=== PATIENT | female | born 1985 | race Caucasian/White ===

== ENCOUNTER 2019-04-30 02:11 | Emergency (ER) | payer BC ==
[2019-04-30] MEDS ORDERED: Aspirin 81 MG Tab.Chew PO ONE (02:23)
[2019-04-30] MEDS ORDERED: Sodium Chloride 0.9% 10 ML Syringe FLUSH PRN (02:23)
[2019-04-30] MEDS ORDERED: Sodium Chloride 0.9% 2.5 ML Syringe FLUSH PRN (02:23)
--- NOTE | 2019-04-30 02:28 | EDM.PDOC ---
ED HPI GENERAL MEDICAL PROBLEM - General Chief Complaint: Chest Pain Stated Complaint: CHEST PAIN Time Seen by Provider: 04/30/19 02:15 - History of Present Illness INITIAL COMMENTS - FREE TEXT/NARRATIVE: HISTORY AND PHYSICAL: History of present illness: The patient is a 34-year-old female who presents with palpitations and chest pressure and feeling like she can't take a deep breath after awakening from sleep and getting up to relocate to her bedroom about a half an hour ago. The patient is that she had a normal day yesterday without any systemic issues and has not had chest pain or shortness of breath in the past. She does have a history of antiphospholipid antibody which she was diagnosed with 12 years ago and currently does not take any medications. She said that she recently reconnected with a recycling sorter and is supposed to be on Plaquenil which she has not restarted as well as a baby aspirin which she has not taken in the last few weeks/months. She has no significant family history for cardiac disease and earlier this evening she felt completely at her baseline. She has no abdominal pain no nausea vomiting no fevers or chills and no cough or other upper respiratory symptoms. She said she was sleeping comfortably and then woke up to locate to her bed and after waking up she started feeling like her heart was racing and beating fast and not caused her to have chest discomfort and pressure along with the shortness of breath. She rated it as a 6/10 at home and currently she rates it as 2-3/10. She did not take any medication at home prior to arrival. She denies any trauma to the area and has no back pain. She says that she does not believe that she is but she and her are trying to have a baby. She has been eating and drinking normally. She has no leg pain or swelling and no calf tenderness or leg asymmetry. Review of systems: As per history of present illness and below otherwise all systems reviewed and negative. Past medical history: As per history of present illness and as reviewed below otherwise noncontributory. Surgical history: As per history of present illness and as reviewed below otherwise noncontributory. Social history: No reported history of drug or alcohol abuse. Family history: As per history of present illness and as reviewed below otherwise noncontributory. Physical exam: General: Well-developed well-nourished female who is mildly overweight and nontoxic and speaking clearly and easily in the ED without breathlessness. She is a little anxious on my evaluation and vital signs are noted by me. HEENT: Atraumatic, normocephalic, pupils reactive, negative for conjunctival pallor or scleral icterus, mucous membranes moist, throat clear, neck supple, nontender, trachea midline. There is no thyromegaly or cervical adenopathy Lungs: Clear to auscultation, breath sounds equal bilaterally, chest nontender. No wheezing stridor or work of breathing Heart: S1S2, regular, negative for clicks, rubs, or JVD. Abdomen: Soft, nondistended, nontender. Negative for masses or hepatosplenomegaly. Negative for costovertebral tenderness. Pelvis: Stable nontender. Genitourinary: Deferred. Rectal: Deferred. Extremities: Atraumatic, negative for cords or calf pain. Neurovascular unremarkable. No pedal edema or leg asymmetry Neuro: Awake, alert, oriented. Cranial nerves II through XII unremarkable. Cerebellum unremarkable. Motor and sensory unremarkable throughout. Exam nonfocal. Diagnostics: EKG CBC CMP INR troponin TSH UA UCG chest x-ray, CTA of the chest Therapeutics: IV O2 monitor aspirin The patient currently is asleep in the room with stable vital signs and is not experiencing any gross discomfort. We will continue to monitor her testing results Patient has been sleeping most of the time while in the emergency department and I discussed all testing results with her and significant other at bedside. She has never been tachycardic and hypoxic or hypertensive here and she currently is very comfortable. I've advised her that due to her risk factors that observation admission would be the most conservative approach. She is currently in discussion with her significant other about the plan for this evening. Is currently not feeling short of breath or having any discomfort After conversation the patient is now stating that she does not want to be admitted and will follow-up with her provider and/or return here if the symptoms return. She is aware of concerns and of limitations here in the emergency department and accepts these and still wants to go home. Impression: Episode of palpitations and atypical chest pain Definitive disposition and diagnosis as appropriate pending reevaluation and review of above. mid chest pressure Pain Score (Numeric/FACES): 6 - Related Data Allergies Allergy/AdvReac Type Severity Reaction Status Date / Time No Known Allergies Allergy Verified 04/30/19 02:20 Home Meds: Home Meds Hydroxychloroquine [Plaquenil] 1 tab PO DAILY 04/30/19 [History] ED ROS GENERAL - Review of Systems Review Of Systems: ROS reveals no pertinent complaints other than HPI. ED EXAM, GENERAL - Physical Exam Exam: See Below (See dictation) Course - Vital Signs Last Recorded V/S: Last Vital Signs Temp 36.1 C 04/30/19 02:16 Pulse 63 04/30/19 04:24 Resp 17 04/30/19 04:24 BP 128/75 04/30/19 02:16 Pulse Ox 99 04/30/19 02:16 - Orders/Labs/Meds Orders: Active Orders 24 hr Category Date Time Status Cardiac Monitoring [RC] . DIRECTED Care 04/30/19 02:12 Active EKG Documentation Completion [RC] STAT Care 04/30/19 02:12 Active Oxygen Therapy, ED [RC] ASDIRECTED Care 04/30/19 02:12 Active Pulse Oximetry [RC] ASDIRECTED Care 04/30/19 02:12 Active Sodium Chloride 0.9% [Saline Flush] Med 04/30/19 02:23 Active 10 ml FLUSH ASDIRECTED PRN Sodium Chloride 0.9% [Saline Flush] Med 04/30/19 02:23 Active 2.5 ml FLUSH ASDIRECTED PRN Saline Lock Insert [OM.PC] Stat Oth 04/30/19 02:22 Ordered Medication Orders Sodium Chloride (Saline Flush) 10 ml FLUSH ASDIRECTED PRN PRN Reason: Keep Vein Open Last Admin: 04/30/19 02:39 Dose: 10 ml Sodium Chloride (Saline Flush) 2.5 ml FLUSH ASDIRECTED PRN PRN Reason: Keep Vein Open Last Admin: 04/30/19 02:40 Dose: 2.5 ml Labs: Laboratory Tests 04/30/19 04/30/19 04/30/19 Range/Units 02:25 02:25 02:35 WBC 8.79 (4.0-11.0) K/uL RBC 4.65 (4.30-5.90) M/uL Hgb 14.2 (12.0-16.0) g/dL Hct 40.6 (36.0-46.0) % MCV 87.3 (80.0-98.0) fL MCH 30.5 (27.0-32.0) pg MCHC 35.0 (31.0-37.0) g/dL RDW Std Deviation 40.9 (28.0-62.0) fl RDW Coeff of Marty 13 (11.0-15.0) % Plt Count 259 (150-400) K/uL MPV 10.00 (7.40-12.00) fL Neut % (Auto) 54.4 (48.0-80.0) % Lymph % (Auto) 34.7 (16.0-40.0) % Kimble % (Auto) 8.0 (0.0-15.0) % Eos % (Auto) 2.3 (0.0-7.0) % Baso % (Auto) 0.6 (0.0-1.5) % Neut # (Auto) 4.8 (1.4-5.7) K/uL Lymph # (Auto) 3.1 H (0.6-2.4) K/uL Kimble # (Auto) 0.7 (0.0-0.8) K/uL Eos # (Auto) 0.2 (0.0-0.7) K/uL Baso # (Auto) 0.1 (0.0-0.1) K/uL Nucleated RBC % 0.0 /100WBC Nucleated RBCs # 0 K/uL INR Sodium (136-145) mmol/L Potassium (3.5-5.1) mmol/L Chloride (98-107) mmol/L Carbon Dioxide (21.0-32.0) mmol/L BUN (7.0-18.0) mg/dL Creatinine (0.6-1.0) mg/dL Est Cr Clr Drug Dosing mL/min Estimated GFR (MDRD) ml/min Glucose (74-106) mg/dL Calcium (8.5-10.1) mg/dL Total Bilirubin (0.2-1.0) mg/dL AST (15-37) IU/L ALT (14-63) IU/L Alkaline Phosphatase (46-116) U/L Troponin I (0.000-0.056) ng/mL Total Protein (6.4-8.2) g/dL Albumin (3.4-5.0) g/dL Globulin (2.6-4.0) g/dL Albumin/Globulin Ratio (0.9-1.6) TSH 3rd Generation (0.36-3.74) uIU/mL Urine Color YELLOW Urine Appearance SLT CLOUDY Urine pH 6.0 (5.0-8.0) Ur Specific [place] 1.020 (1.001-1.035) Urine Protein NEGATIVE (NEGATIVE) mg/dL Urine Glucose (UA) NEGATIVE (NEGATIVE) mg/dL Urine Ketones NEGATIVE (NEGATIVE) mg/dL Urine Occult Blood NEGATIVE (NEGATIVE) Urine Nitrite NEGATIVE (NEGATIVE) Urine Bilirubin NEGATIVE (NEGATIVE) Urine Urobilinogen 0.2 (<2.0) EU/dL Ur Leukocyte Esterase NEGATIVE (NEGATIVE) Urine HCG, Qual NEGATIVE (NEGATIVE) 04/30/19 04/30/19 Range/Units 02:35 02:35 WBC (4.0-11.0) K/uL RBC (4.30-5.90) M/uL Hgb (12.0-16.0) g/dL Hct (36.0-46.0) % MCV (80.0-98.0) fL MCH (27.0-32.0) pg MCHC (31.0-37.0) g/dL RDW Std Deviation (28.0-62.0) fl RDW Coeff of Marty (11.0-15.0) % Plt Count (150-400) K/uL MPV (7.40-12.00) fL Neut % (Auto) (48.0-80.0) % Lymph % (Auto) (16.0-40.0) % Kimble % (Auto) (0.0-15.0) % Eos % (Auto) (0.0-7.0) % Baso % (Auto) (0.0-1.5) % Neut # (Auto) (1.4-5.7) K/uL Lymph # (Auto) (0.6-2.4) K/uL Kimble # (Auto) (0.0-0.8) K/uL Eos # (Auto) (0.0-0.7) K/uL Baso # (Auto) (0.0-0.1) K/uL Nucleated RBC % /100WBC Nucleated RBCs # K/uL INR 1.01 Sodium 140 (136-145) mmol/L Potassium 3.7 (3.5-5.1) mmol/L Chloride 106 (98-107) mmol/L Carbon Dioxide 23.7 (21.0-32.0) mmol/L BUN 10 (7.0-18.0) mg/dL Creatinine 0.6 (0.6-1.0) mg/dL Est Cr Clr Drug Dosing 109.29 mL/min Estimated GFR (MDRD) > 60.0 ml/min Glucose 134 H (74-106) mg/dL Calcium 8.6 (8.5-10.1) mg/dL Total Bilirubin 0.6 (0.2-1.0) mg/dL AST 79 H (15-37) IU/L ALT 160 H (14-63) IU/L Alkaline Phosphatase 89 (46-116) U/L Troponin I < 0.050 (0.000-0.056) ng/mL Total Protein 7.5 (6.4-8.2) g/dL Albumin 3.3 L (3.4-5.0) g/dL Globulin 4.2 H (2.6-4.0) g/dL Albumin/Globulin Ratio 0.8 L (0.9-1.6) TSH 3rd Generation 3.29 (0.36-3.74) uIU/mL Urine Color Urine Appearance Urine pH (5.0-8.0) Ur Specific [place] (1.001-1.035) Urine Protein (NEGATIVE) mg/dL Urine Glucose (UA) (NEGATIVE) mg/dL Urine Ketones (NEGATIVE) mg/dL Urine Occult Blood (NEGATIVE) Urine Nitrite (NEGATIVE) Urine Bilirubin (NEGATIVE) Urine Urobilinogen (<2.0) EU/dL Ur Leukocyte Esterase (NEGATIVE) Urine HCG, Qual (NEGATIVE) Meds: Medications Generic Name Dose Route Start Last Admin Trade Name Freq PRN Reason Stop Dose Admin Sodium Chloride 10 ml 04/30/19 02:23 04/30/19 02:39 Saline Flush FLUSH 10 ml ASDIRECTED PRN Administration Keep Vein Open Sodium Chloride 2.5 ml 04/30/19 02:23 04/30/19 02:40 Saline Flush FLUSH 2.5 ml ASDIRECTED PRN Administration Keep Vein Open Discontinued Medications Generic Name Dose Route Start Last Admin Trade Name Freq PRN Reason Stop Dose Admin Aspirin 324 mg 04/30/19 02:23 04/30/19 02:39 Aspirin PO 04/30/19 02:24 324 mg ONETIME ONE Administration Iopamidol 100 ml 04/30/19 03:22 04/30/19 03:47 Isovue-370 (76%) IVPUSH 04/30/19 03:23 100 ml ONETIME ONE Administration Departure - Departure Time of Disposition: 05:02 Disposition: Home, Self-Care 01 Condition: Good Clinical Impression: Palpitations, Atypical chest pain - Discharge Information Referrals: PCP,None [Primary Care Provider] - Forms: ED Department Discharge Additional Instructions: The following information is given to patients seen in the emergency department who are being discharged to home. This information is to outline your options for follow-up care. We provide all patients seen in our emergency department with a follow-up referral. The need for follow-up, as well as the timing and circumstances, are variable depending upon the specifics of your emergency department visit. If you don't have a primary care physician on staff, we will provide you with a referral. We always advise you to contact your personal physician following an emergency department visit to inform them of the circumstance of the visit and for follow-up with them and/or the need for any referrals to a consulting specialist. The emergency department will also refer you to a specialist when appropriate. This referral assures that you have the opportunity for followup care with a specialist. All of these measure are taken in an effort to provide you with optimal care, which includes your followup. Under all circumstances we always encourage you to contact your private physician who remains a resource for coordinating your care. When calling for followup care, please make the office aware that this follow-up is from your recent emergency room visit. If for any reason you are refused follow-up, please contact the [facility] emergency department at and ask to speak to the emergency department charge nurse. [facility] Primary care- Internal Medicine and Family [address] [address] Please continue to monitor your symptoms and take your baby aspirin daily and start your medications as prescribed to you by your provider. Please call and schedule a follow-up appointment this week with your provider or one of ours for further evaluation and care of the symptoms and further workup as needed. Return to ER as needed and as discussed - My Orders Last 24 Hours: My Active Orders 04/30/19 02:12 Cardiac Monitoring [RC] . DIRECTED EKG Documentation Completion [RC] STAT Oxygen Therapy, ED [RC] ASDIRECTED Pulse Oximetry [RC] ASDIRECTED 04/30/19 02:22 Saline Lock Insert [OM.PC] Stat 04/30/19 02:23 Sodium Chloride 0.9% [Saline Flush] 10 ml FLUSH ASDIRECTED PRN Sodium Chloride 0.9% [Saline Flush] 2.5 ml FLUSH ASDIRECTED PRN - Assessment/Plan Last 24 Hours: My Active Orders 04/30/19 02:12 Cardiac Monitoring [RC] . DIRECTED EKG Documentation Completion [RC] STAT Oxygen Therapy, ED [RC] ASDIRECTED Pulse Oximetry [RC] ASDIRECTED 04/30/19 02:22 Saline Lock Insert [OM.PC] Stat 04/30/19 02:23 Sodium Chloride 0.9% [Saline Flush] 10 ml FLUSH ASDIRECTED PRN Sodium Chloride 0.9% [Saline Flush] 2.5 ml FLUSH ASDIRECTED PRN
[2019-04-30 03:16] LABS: BLOOD UREA NITROGEN,BUN 10 mg/dL (7.0-18.0); CARBON DIOXIDE,CO2 23.7 mmol/L (21.0-32.0); CHLORIDE,CL 106 mmol/L (98-107); GLUCOSE RANDOM 134 mg/dL (74-106); POTASSIUM,K 3.7 mmol/L (3.5-5.1); SODIUM,NA 140 mmol/L (136-145)
[2019-04-30] MEDS ORDERED: Iopamidol 755 Mg/ML 100 ML Bottle IVPUSH ONE (03:22)
--- NOTE | 2019-04-30 03:49 | CR ---
Indication: Chest pain Technique: Chest 1 view Comparison: None Findings/Impression: Cardiovascular and mediastinum: Upper limits of normal cardiac size is at least partially related to the portable technique. Lungs and pleural space: Lungs are clear. No sign of infiltrate or mass. No sign of pleural effusion. No pneumothorax. Bones and soft tissues: No significant findings. Dictated by Navin Caban MD @ 04/30/2019 3:48:02 AM Dictated by: Navin Caban MD @ 04/30/2019 03:48:05 (Electronically Signed)
--- NOTE | 2019-04-30 04:56 | CT ---
INDICATION: Chest pain. COMPARISON: Plain film same date. TECHNIQUE: 100 mL Omnipaque 370 IV contrast. FINDINGS: Adequate bolus timing. No filling defect of pulmonary artery. Central pulmonary artery caliber is normal. Heart size is normal. No pericardial or pleural effusion. No hiatus hernia. Low-attenuation of liver consistent with steatosis. Cholecystectomy clips. Lung parenchyma is unremarkable with no significant nodule or consolidation. Visualized airways are patent. No pathologic mediastinal or hilar adenopathy. IMPRESSION: 1. No pulmonary embolism or acute cardiopulmonary disease. 2. Cholecystectomy. 3. Steatosis of the liver. Please note that all CT scans at this facility use dose modulation, iterative reconstruction, and/or weight-based dosing when appropriate to reduce radiation dose to as low as reasonably achievable. Dictated by Richard Gutierrez MD @ May 02 2019 2:35PM Signed by Dr. Richard Gutierrez @ May 02 2019 2:36PM
== END 2019-04-30 05:10 | disposition home or self-care (01) ==
LOC: MW.ED 02:11
DX: R07.89 Other chest pain (principal); R00.2 Palpitations
CPT/HCPCS: 36415; 71045; 71275; 80053; 81003; 81025; 84443; 84484; 85025; 85610; 93005; 99285; A9270; Q9967; 99284